=== PATIENT | male | born 1955 | race Caucasian/White ===

== ENCOUNTER 2023-08-17 08:05 | Outpatient (AMB) | payer MEDICARE, SELFPAY ==
--- NOTE | 2023-08-17 08:06 | AM.OFFWIN_ITS ---
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 Denies any contact with sick person. Denies eye pain just itching. PFSH Social History Patient Tobacco Use Status: Current everyday Tobacco user (3 a day) Review of Systems Const All systems reviewed & are unremarkable except as noted in HPI and below Physical Exam Vital Signs: Last Vital Signs Temp 97.8 F 08/17/23 08:09 Pulse 74 08/17/23 08:09 BP 106/64 08/17/23 08:09 Pulse Ox 96 08/17/23 08:09 Oxygen Delivery Method Room Air 08/17/23 08:09 BMI result Body Mass Index 23.6 HEENT Head: Yes normocephalic Ears: external ears normal and TM's normal bilaterally General nose exam: no nasal discharge noted Face and sinus: Yes sinuses nontender Mouth: moist mucous membranes Throat: Yes posterior oropharynx normal Eyes General: appearance normal, both eyes and all related structures Eyelids: Yes eyelids normal Conjunctivae: conjunctivae normal Sclerae: sclerae normal Pupils: Equal, round and reactive pupils present Neuro Cranial nerves: Yes Equal, round and reactive pupils present Assessment & Plan Assessment & Plan (1) Otalgia of both ears: Code(s): H92.03 - Otalgia, bilateral Plan: - Normal eye, no drainage seen - Will tx now with Zaditor - Monitor S&S of infection. - Wash eyes with warm clean water, no soap. (2) Dry eye of left side: Code(s): H04.122 - Dry eye syndrome of left lacrimal gland Plan: - Normal eye, no drainage seen - Will tx now with Zaditor - Monitor S&S of infection. - Wash eyes with warm clean water, no soap. Medications: New acetaminophen 500 mg PO Q6H PRN 30 caps 0RF fever H92.03 - Otalgia, bilateral ketotifen fumarate 0.025%(0.035%) (Zaditor) administer at least 8 hours apart 1 drp ophthalmic (eye) BID 5 mL 0RF H04.122 - Dry eye syndrome of left lacrimal gland Coding Level of Care Code New Pt Level 3 (70150) Diagnoses Otalgia of both ears H92.03 Dry eye of left side H04.122 Time Spent (min) 15
[2023-08-17 08:09] VITALS: BP 106/64; PULSE 74; TEMP 36.6; O2SAT 96; BMI 23.6
== END 2023-08-17 11:09 | disposition home or self-care (01) ==
PROVIDERS: Visit Provider Nurse Practitioner Family
DX: H92.03 Otalgia, bilateral (principal); H04.122 Dry eye syndrome of left lacrimal gland
CPT/HCPCS: 99203

== ENCOUNTER 2023-10-21 10:34 | Outpatient (AMB) | payer MEDICARE, SELFPAY ==
[2023-10-21 11:01] VITALS: BP 122/62; PULSE 76; TEMP 36.9; O2SAT 97; BMI 23.8
--- NOTE | 2023-10-21 11:01 | AM.OFFWIN_ITS ---
Intake Vital Signs 10/21/23 11:01 Height 6 ft 2 in Weight 185 lb 6 oz BMI 23.8 BP 122/62 Blood Pressure Location Lt brachial Position Sitting Pulse 76 Pulse Source Pulse Oximeter Temp 98.4 F Temp Source Oral Pulse Oximetry (%) 97 Oxygen Delivery Method Room Air Intake Visit Reasons: EP Cold, Mucus Intake Note: Patient is here with chest cold, he mar COPD that flared up, breathing is a little rough . Patient Tobacco Use Status: Current everyday Tobacco user (3 a day) Allergies No Known Allergies Allergy (Verified 10/21/23 11:04) Do you need a note to return to daycare/school/sports/work: No HPI EP Cold, Mucus HPI Details Patient is a 68-year-old male with a history of COPD who has since quit smoking, comes to the walk-in clinic complaining of upper respiratory infection symptoms and chest congestion with productive cough. He does have some mild shortness of breath. He reports that symptoms have been for a few days, and his albuterol inhaler is only helping him a little. He denies fever chills, weakness or dizziness, myalgias or malaise, nausea vomiting or diarrhea, or other significant associated symptoms. He has not checked for COVID at home yet. No known sick contacts. [facility] Medical History (Updated 10/21/23 @ 12:04 by MACI Casarez) COPD exacerbation Social History Patient Tobacco Use Status: Current everyday Tobacco user (3 a day) Review of Systems Const All systems reviewed & are unremarkable except as noted in HPI and below Physical Exam Vital Signs: Last Vital Signs Temp 98.4 F 10/21/23 11:01 Pulse 76 10/21/23 11:01 BP 122/62 10/21/23 11:01 Pulse Ox 97 10/21/23 11:01 Oxygen Delivery Method Room Air 10/21/23 11:01 BMI result Body Mass Index 23.8 Const General: cooperative, alert, awake, Physically active, in distress mild and respiratory, ill appearing and well groomed; No comfortable, anxious, diaphoretic, intoxicated appearing, poor hygiene or tired appearing Nutritional Appearance: average body habitus Orientation/consciousness: patient oriented x3 Limitations: no limitations Chest Chest palpation & inspection: abnormal inspection of the chest Resp Effort & Inspection: normal respiratory effort, able to speak in complete sentences, no audible wheezes, Actively coughing, no grunting, no nasal flaring, respiratory distress (Mild), no retractions, no stridor, not tachypneic, no tracheal deviation, tripod positioning (Subtly), no use of accessory muscles and symmetric chest movement Auscultation: no crackles, no rales, rhonchi, wheezes (Diffusely) expiratory wheezes, diminished lung sounds and No rub present Cardio Palpation: normal PMI Rate: regular rate Rhythm: regular rhythm Heart sounds: S1 normal heart sound present and S2 normal heart sound present Skin Other: Good color, warm and dry Neuro General: patient oriented x3 Psych Appearance: grossly normal Mental Status: mental status grossly normal Speech and movement: Normal speech and movement present Affect: normal affect Attitude: cooperative Thought process: Normal thought process present Insight: Good insight present (Psych) Judgement: Good judgement present (Psych) Office Procedures Nebulizer Treatment Nebulizer Treatment Details: Patient given 2.5 mg in 3 mL of albuterol sulfate for inhalation. He reports being able to breathe better after the treatment, and lung sounds were less wheezy especially on the left side, with improved lung expansion. Oxygens gin saturation improved from 97% to 99% on room air. Lot [id number] of the medication with expiration date September 10. 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 He is a few days into exacerbated COPD episode, with increased cough and mucus production as well as mild wheezing and shortness of breath. He has been using his albuterol inhaler more often with limited relief. His lung sounds were wheezy diffusely, with decreased air movement. This improved with a treatment of albuterol nebulized in the office, and his O2 sat went from 97-99%. He reports having improved in the past with prednisone and doxycycline, and this is what we started today. He recently refilled his albuterol for home use. He has a follow-up in 5 days with his PCP who can continue to monitor this, or he can come back to the walk-in if it is persisting or worsening in the meantime, or he knows to go to the emergency department with worrisome symptoms. Orders: Orders SARS-CoV2/FLU/RSV 10/21/23 R05.9 - Cough, unspecified Medications: New doxycycline hyclate 100 mg PO BID 14 tabs 0RF 7 days prednisone then take 3 tabs for 3 days, then 2 tabs for 3 days, then 1 tab for 3 days. 40 mg (4 x 10 mg) PO DAILY 30 tabs 0RF 3 days Coding Level of Care Code Est Pt Level 4 (76668) Diagnoses COPD exacerbation J44.1 CPT Codes Nebulizer Treatment - Nebulizer Treatment, initial or subsequent: 49612- Nebulizer/MDI RX initial, or Nebulizer Subsequent Treatment ([id number])
== END 2023-10-21 12:37 | disposition home or self-care (01) ==
PROVIDERS: Visit Provider Physician Assistant Medical
DX: J44.1 Chronic obstructive pulmonary disease with (acute) exacerbation (principal)
CPT/HCPCS: 94640; 99051; 99214; J7613

== ENCOUNTER 2023-10-21 13:28 | Outpatient (REF) | payer MEDICARE, SELFPAY ==
[2023-10-21 14:20] LABS: Influenza A PCR NEGATIVE (Negative); Influenza B PCR NEGATIVE (Negative); Resp Syncy Virus RNA Qual PCR NEGATIVE (Negative); SARS COV2 PCR INHOUSE NEGATIVE (Negative)
== END 2023-10-21 13:29 | disposition home or self-care (01) ==
LOC: HO.LNP 13:28
PROVIDERS: Visit Provider Physician Assistant Medical
DX: R05.9 Cough, unspecified (principal); J06.9 Acute upper respiratory infection, unspecified
CPT/HCPCS: 0241U